=== PATIENT | male | born 1935 | race Caucasian/White ===

== ENCOUNTER → 2016-04-20 14:14 | Outpatient (CLI) | payer MEDICARE ==
[2014-06-24 10:42] VITALS: BMI 35.0
[~2016-04-20 14:14] MED LIST: ASPIRIN EC81 M1 PO; ATIVAN0.5 MG PO; CENTRUM COMPLE1 EACH PO; CHROMIUM PICO200 MC1; CHROMIUM PICO200 MC1 PO; COZAAR100 MG PO; FARXIGA10 MG PO; FLOMAX0.4 MG PO; GABAPENTIN100 MG PO; HYDROCODONE-APA1 TAB PO; INDOCIN25 MG PO; LANTUS SOL100 UNIT/1; LEXAPRO10 MG; MAGNESIUM OXID250 MG PO; METOPROLOL TART50 MG PO; OMEGA-3100 MG PO; OSTEO BI-FLEX1 EAC1 PO; PLAVIX75 MG PO; VANCOMYCIN 750750 MG IV; VITAMIN B-122500 MCG PO; ZYLOPRIM300 MG PO
[2016-04-20 15:01] LABS: BASOPHILS 0.2 % (0.0-2.0); EOSINOPHILS 0.5 % (0-7); HEMATOCRIT 38.3 % (42.0-54.0); HEMOGLOBIN 12.2 g/dL (13.5-17.5); LYMPHOCYTES 22.3 % (15-50); MCH 28.5 pg (26.0-34.0); MCHC 31.9 g/dL (31.0-37.0); MCV 89.5 fL (80.0-100.0); MONOCYTES 21.8 % (2-11); NEUTROPHILS 54.2 % (40-80); PLATELET COUNT 71 10x3/uL (130-400); RBC 4.28 10x6/uL (4.20-6.10); RDW 16.2 % (11.5-14.5); WBC 4.2 10x3/uL (4.8-10.8)
[2016-04-20 16:02] LABS: PLATELET ESTIMATE DECREASED
== END | disposition home or self-care (01) ==
LOC: D.LAB 11:00
PROVIDERS: Internal Medicine Interventional Cardiology
DX: D69.6 Thrombocytopenia, unspecified (principal)

== ENCOUNTER 2016-04-25 08:29 | Outpatient (CLI) | payer MEDICARE ==
[~2016-04-25] VITALS: Ht 177.8 cm; Wt 113.6 kg
--- NOTE | ~2016-04-25 | HEMODYNAMI ---
PATIENT:JOSE GOLDSTEIN MEDICAL RECORD: [id number] : 31 LOCATION:[facility] ADMISSION DATE: 04/25/16 Generatedon:04/26/20167:47 Patient name: JOSE GOLDSTEIN Patient #: [id number] SSN: [id number] : 1935 Date of study: 04/25/2016 Page: Of Hemodynamic Procedure Report Patient Data Patient Demographics Procedure consent was obtained First Name: JOSE Gender: Male Last Name: TRISTON : 1935 Middle Initial: D Age: 80 year(s) Patient #: [id number] Race: Unknown SSN: [id number] Additional ID: [id number] Contact details [address]: [address] [place] [address] State: [place] City: [place] Zip code: [address] Past Medical History Allergies Allergen Reaction Date Comments Reported Other allergy 06/24/2014 PCN, Sulfa, [place] Other allergy 04/25/2016 PCN, Sulfa Admission Admission Data Admission Date: 04/25/2016 Admission Time: 8:29 Arrival Date: 04/25/2016 Arrival Time: 0:00 Admit Source: Other Height (in.): 60 BSA: 2.06 (m2) Height (cm.): 152.4 BMI: 49.41 (kg/m2) Weight (lbs.): 253 Weight (kg.): 114.76 Lab Results Lab Result Date: 04/25/2016 Lab Result Time: 0:00 Biochemistry Name Units Result Min Max BUN mg/dl 26 --(----)-* 7 18 Creatinine mg/dl 1.4 --(----)*- 0.6 1.3 CBC Name Units Result Min Max Hemoglobin g/dl 12.5 *-(----)-- 13.5 17.5 Procedure Procedure Types Cath Procedure Diagnostic Procedure LHC LHC w/Coronaries Miscellaneous Procedures Moderate Sedation up to 15 minutes Procedure Description Procedure Date Procedure Date: 04/25/2016 Procedure Start Time: 10:12 Procedure End Time: 10:28 Procedure Staff Name Function Sourav Truongley RT English And Reading Instructor Hardy Wells MD Performing Physician Ankita Garvin RN Nurse Catarino Conklin RT Scrub Lashon Montero RT Monitor Kenyetta Clark RT Monitor Procedure Data Cath Procedure Fluoroscopy Diagnostic fluoroscopy Total fluoroscopy Time: 5.9 time: 5.9 min min Diagnostic fluoroscopy Total fluoroscopy dose: 371 dose: 371 mGy mGy Contrast Material Contrast Material Type Amount (ml) Isovue 300 80 Entry Location Entry Primary Successful Side Size Upsize Upsize Entry Closure Denson ccessful Closure Location (Fr) 1 (Fr) 2 (Fr) Remarks Device Remarks Radial Right 6 Fr Mechanical artery Short Compression Estimated blood loss: 10 ml Diagnostic catheters Device Type Used For End Catheter Placement Terumo 5Fr Timo 110cm Procedure catheter Cordis Infinity 5Fr Procedure Pigtail catheter Procedure Complications No complications Procedure Medications Medication Administration Route Dosage Oxygen NRB 2 l/min Heparin Flush Bag added to field 2 bags (1000units/500ml NS) Lidocaine 2% added to field 20 Radial Cocktail added to field 1 syringe (Verapomil 2mg/Nitro 400mcg/Heparin 1500units) Versed I.V. 1 mg Fentanyl I.V. 50 mcg Versed I.V. 1 mg Fentanyl I.V. 50 mcg Fentanyl I.V. 50 mcg Versed I.V. 0.5 mg Radial Cocktail I.A. 1 syringe (Verapomil 2mg/Nitro 400mcg/Heparin 1500units) Versed I.V. 0.5 mg Hemodynamics Rest BSA: 2.06 (m2) HGB: 12.5 (g/dl) O2 Consumption: Estimated: 225.52 (ml/min) O2 Co nsumption indexed: Estimated:109.48 (ml/min/m) Heart Rate: 58 (bpm) Pressure Samples Time Site Value (mmHg) Purpose Heart Use Rate(bpm) 10:20 LV 158/46,40 Snapshot 69 Snapshots Pre Cath Intra NCS Post Cath Vital Signs Time Heart Resp SPO2 NIBP (mmHg) Rhythm Pain Sedation Rate (ipm) (%) Status Level (bpm) 9:56:24 55 20 97 162/81(142) NSR 0 (11) 10(A) , No pain 10:00:52 58 25 96 158/87(140) NSR 0 (11) 10(A) , No pain 10:05:18 63 23 95 150/83(133) NSR 0 (11) 10(A) , No pain 10:09:42 63 16 95 152/83(128) NSR 0 (11) 10(A) , No pain 10:14:05 63 16 96 158/94(128) NSR 0 (11) 10(A) , No pain 10:18:16 70 16 95 140/93(124) NSR 0 (11) 9(A) , No pain 10:22:37 74 16 95 134/86(116) NSR 0 (11) 9(A) , No pain 10:26:51 66 16 94 142/86(103) NSR 0 (11) 9(A) , No pain Medications Time Medication Route Dose Verified Delivered Reason Notes Effectiveness by by 9:59:46 Oxygen NRB 2 l/min Hardy Ankita Per Russell Garvin RN physician 9:59:53 Heparin Flush added 2 bags Hardy Dash used for Bag to Russell Wells MD procedure (1000units/500ml field NS) 10:00:00 Lidocaine 2% added 20ml Hardy Hardy used for to vial Russell Wells MD procedure field 10:00:08 Radial Cocktail added 1 Hardy Hardy used for (Verapomil to syringe Russell Wells MD procedure 2mg/Nitro field 400mcg/Hepari 10:07:24 Versed I.V. 1 mg Hardy Ankita for sedation Russell Garvin RN 10:07:31 Fentanyl I.V. 50 mcg Hardy Ankita for sedation Russell Garvin RN 10:09:53 Versed I.V. 1 mg Hardy Ankita for sedation Russell Garvin RN 10:09:55 Fentanyl I.V. 50 mcg Hardy Ankita for sedation Russell Garvin RN 10:11:48 Fentanyl I.V. 50 mcg Hardy Ankita for sedation Russell Garvin RN 10:11:52 Versed I.V. 0.5 mg Hardy Ankita for sedation Russell Garvin RN 10:13:24 Radial Cocktail I.A. 1 Hardyroseline Lopezrey for (Verapomil syringe Tauth MD Tauth MD vasodilation 2mg/Nitro 400mcg/Hepari 10:14:01 Versed I.V. 0.5 mg Hardy Ankita for sedation Russell Garvin recreation specialist Log Time Note 9:46:42 Patient Height : 152.4 inches 9:46:48 Admit Source: Other 9:46:48 Patient Weight : 114.76 lbs 9:46:51 Arrival Date: 04/25/2016 12:00:00 AM 9:47:56 Lab Result : Hemoglobin 12.5 g/dl 9:47:56 Lab Result : Creatinine 1.4 mg/dl 9:47:56 Lab Result : BUN 26 mg/dl 9:48:05 Diagnostic Cath Status : Elective 9:48:48 Sourav Ng RT(R) sent for patient. Start room use. 9:48:50 Time tracking: Regular hours 9:48:55 Plan of Care:Hemodynamics will remain stable., Cardiac rhythm will remain stable., Comfort level will be maintained., Respiratory function will remain adequate., Patient/ family verbilizes understanding of procedure., Procedure tolerated without complication., Recovers from procedure without complications.. 9:49:01 Patient received from Outpatients to [facility] 3 Alert and oriented. Tansferred to table in Supine position. 9:49:03 Warm blankets applied, and otoniel hugger turned on for patient comfort. 9:49:04 Correct patient and procedure confirmed by team. 9:49:07 Signed procedure consent form obtained from patient. 9:49:23 H&P Date Dictated: 04/04/2016 Within 30 days and on chart., H&P Addendum completed by physician on day of procedure. (MUST COMPLETE FOR ALL OUTPATIENTS). 9:49:25 Pre-procedure instructions explained to patient. 9:49:26 Family in waiting room. 9:49:29 Patient NPO since Midnight. 9:49:47 Patient allergic to Other allergyPCN, Sulfa 9:49:50 Is the patient allergic to Iodine/contrast media? No. 9:49:52 Was the patient premedicated? No 9:49:53 Is patient on blood thinner?No 9:49:56 Patient diabetic? Yes. 9:49:58 If diabetic: On Metformin? No 9:50:02 Snore? Yes 9:50:04 Sleep apnea? No 9:50:05 Deviated septum? No 9:50:06 Opens mouth fully? Yes 9:50:07 Sticks out tongue? Yes 9:50:14 Patient pain scale 0/10 ?. 9:50:22 IV patent on arrival in left forearm with 0.9% NaCl at [facility]. 9:50:29 Lab results completed and on chart. 9:50:33 Right Radial & Right Groin area was prepped with chlora-prep and draped in sterile fashion 9:50:34 Sharps counted by scrub and verified by R.N. 9:50:34 Alarms reviewed by R. N. 9:50:36 Physician paged 9:55:04 Vital chart was started 9:56:29 ECG and BP/O2 sat monitors applied to patient. 9:56:31 Baseline sample Acquired. 9:56:38 Rhythm: sinus rhythm 9:56:40 Full Disclosure recording started 9:56:57 Baseline sample Acquired. 9:59:46 Oxygen 2 l/min NRB was given by Ankita Garvin RN; Per physician; 9:59:53 Heparin Flush Bag (1000units/500ml NS) 2 bags added to field was given by Hardy Wells MD; used for procedure; 10:00:00 Lidocaine 2% 20ml vial added to field was given by Hardy Wells MD; used for procedure; 10:00:08 Radial Cocktail (Verapomil 2mg/Nitro 400mcg/Heparin 1500units) 1 syringe added to field was given by Hardy Wells MD; used for procedure; 10:06:52 --------ALL STOP TIME OUT------ 10:06:52 Physician arrived 10:06:53 Final Timeout: patient, procedure, and site verified with staff and physician. All members of the team are in agreement. 10:06:55 Right Radial & Right Groin site verified by team. 10:06:58 Physical assessment completed. ASA score P 2 - A patient with mild systemic disease as per Hardy Wells MD. 10:07:01 Sedation plan: IV Moderate Sedation Versed, Fentanyl 10:07:21 Use device set Radial Dx 10:07:22 Acist Syringe opened to sterile field. 10:07:23 Medline Cath Pack opened to sterile field. 10:07:24 Terumo 6Fr Slender Glidesheath opened to sterile field. 10:07:24 Bag Decanter opened to sterile field. 10:07:24 Versed 1 mg I.V. was given by Ankita Garvin RN; for sedation; 10:07:25 St Anand 260cm J .035 wire opened to sterile field. 10:07:26 Acist Manifold opened to sterile field. 10:07: Acist Hand Control opened to sterile field. 10:07:28 Tegaderm 4 x 4 opened to sterile field. 10:07:31 Fentanyl 50 mcg I.V. was given by Ankita Garvin RN; for sedation; 10::53 Versed 1 mg I.V. was given by Ankita Garvin RN; for sedation; 10::55 Fentanyl 50 mcg I.V. was given by Ankita Garvin RN; for sedation; 10:11:48 Fentanyl 50 mcg I.V. was given by Ankita Garvin RN; for sedation; 10:11:52 Versed 0.5 mg I.V. was given by Ankita Garvin RN; for sedation; 10:12:47 Procedure started. 10:12:52 Local anesthetic to right radial artery with Lidocaine 2% by Hardy Wells MD.INITIAL ACCESS ONLY 10:13:24 Radial Cocktail (Verapomil 2mg/Nitro 400mcg/Heparin 1500units) 1 syringe I.A. was given by Hardy Wells MD; for vasodilation; 10:13:27 A 6 Fr Short sheath was inserted into the Right Radial artery 10:13:33 Zero performed for pressure channel P1 10:13:52 J wire advanced. 10:14:01 Versed 0.5 mg I.V. was given by Ankita Garvin RN; for sedation; 10:14:09 A Terumo 5Fr Timo 110cm catheter was advanced over the wire and used for Procedure. 10:18:42 Catheter removed. unable to cannulate any of the vessels. 10:20:20 A Cordis Infinity 5Fr Pigtail catheter was advanced over the wire and used for Procedure. 10:21:01 EF : 55 % 10:21:07 LV gram done using GREENFIELD 10:21:19 Catheter removed. 10:21:29 Medtronic Launcher 6Fr EBU 3.5 guide catheter opened to sterile field. 10:22:10 EBU 3.5 was advanced for procedure 10:22:14 RCA angiography performed. 10:22:22 LCA angiography performed. 10:23:44 Catheter removed. 10:23:57 Terumo TR Band Large opened to sterile field. 10:24:09 Sheath removed intact; hemostasis achieved with Mechanical Compression to the Right Radial artery. 10:24:12 Procedure ended.(Physican Out) 10:24:31 Fluoroscopy time 05.90 minutes. 10:24:38 Fluoroscopy dose: 371 mGy 10:24:38 Flurop Dose total: 371 10:24:55 Contrast amount:Isovue 300 80ml. 10:25:17 TR band inflated with 9cc of air. 10:25:20 Insertion/operative site no bleeding no hematoma. 10:25:39 Post right radial artery:stable 10:25:48 Post-procedure physical assessment completed. ASA score P 2 - A patient with mild systemic disease as per Hardy Wells MD. 10:25:57 Post procedure rhythm: unchanged. 10:26:00 Estimated blood loss: 10 ml 10:26:03 Post procedure instruction explained to patient.Patient verbalizes understanding. 10:26:06 Patient needs reinforcement of post procedure teaching. 10:26:19 Procedure type changed to Cath procedure, Diagnostic procedure, LHC, LHC w/Coronaries, Miscellaneous Procedures, Moderate Sedation up to 15 minutes 10:26:21 Procedure and supply charges have been captured, reviewed, submitted and are correct. 10:28:07 Procedure Complication : No complications 10:28:09 Vital chart was stopped 10:28:11 See physician's report for complete and final results. 10:28:16 Report given to Outpatients. 10:28:18 Patient transfered to Outpatients with Stretcher. 10:28:20 Full Disclosure recording stopped 10:28:20 Procedure ended. 10:28:27 End room use (Document Last) Device Usage Item Name Manufacture Quantity Catalog Hospital Part Current Minimal Lot# / Number Charge Number Stock Stock Serial# Code Acist Acist 1 50422 569199 620059 275238 20 [employer] Medline Cardinal 1 [id number] 253036 40481 134646 5 Cath Pack Health Bag Microtek 1 2001S [id number] 33662 364788 5 Sift [employer] Inc. Terumo 6Fr Terumo 1 [id number] 410212 907973 646243 [address] An[address] St Anand 1 325718 819124 469797 785883 30 260cm J .035 wire Acist Hand Acist 1 05923 686580 758907 495644 5 Control Medical Systems Inc Acist Acist 1 74624 415503 370647 729581 5 Manifold Medical Systems Inc Tegaderm 4 3M 1 1626W 828007 018873 756865 5 x 4 Terumo 5Fr Terumo 1 40-5023 830570 957835 024829 5 Timo 110cm catheter Medtronic Medtronic 1 [id number] 587677 056916 848585 1 Launcher 5Fr EBU 3.5 guide catheter Cordis Cardinal 1 [id number] 749317 495666 905618 5 Infinity Health 5Fr Pigtail catheter Medtronic Medtronic 1 [id number] 902762 34630 668880 3 Launcher 6Fr EBU 3.5 guide catheter Medtronic Medtronic 1 [id number] 296529 242360 778500 1 Launcher 5Fr AR 2.0 guide catheter Terumo TR Terumo 1 [id number] 818248 649087 40 Band Large Signature Audit [place] Stage Time Signature Unsigned Intra-Procedure 04/25/2016 Lashon Kumari Counts 10:29:34 AM RT(R) RT(R) 04/26/2016 7:46:22 AM Intra-Procedure 04/26/2016 Kenyetta 7:47:48 AM Counts RT(R) Signatures Monitor : Lashon Montero Signature : RT Date : Time : Monitor : Kenyetta Signature : Counts RT Date : Time : [place] [id number] [facility] [place] [address]
[~2016-04-25 08:29] MED LIST changes: -MAGNESIUM OXID250 MG PO
[2016-04-25] MEDS ORDERED: MAGNESIUM OXID250 MG PO (08:54)
[2016-04-25 09:01] VITALS: BP 163/80; Ht 177.8 cm; Wt 113.6 kg
[2016-04-25 09:03] LABS: BASOPHILS 0.6 % (0.0-2.0); EOSINOPHILS 0.6 % (0-7); HEMATOCRIT 39.2 % (42.0-54.0); HEMOGLOBIN 12.5 g/dL (13.5-17.5); IMMATURE GRANULOCYTES 0.8 % (0-5); MCH 28.5 pg (26.0-34.0); MCHC 31.9 g/dL (31.0-37.0); MCV 89.3 fL (80.0-100.0); MEAN PLATELET VOLUME 10.2 fL (7.4-10.4); MONOCYTES 20.5 % (2-11); NEUTROPHILS 45.5 % (40-80); RBC 4.39 10x6/uL (4.20-6.10); WBC 3.6 10x3/uL (4.8-10.8)
[2016-04-25 09:14] LABS: ANION GAP 12.9 mmol/L (8-16); CALCIUM 9.6 mg/dL (8.5-10.1); CARBON DIOXIDE 25.3 mmol/L (21.0-32.0); CREATININE - SERUM 1.4 mg/dL (0.6-1.3); POTASSIUM - SERUM 4.2 mmol/L (3.5-5.1)
[2016-04-25 09:15] LABS: PLATELET COUNT 56 10x3/uL (130-400)
--- NOTE | 2016-04-25 11:29 | NUR ---
1045 RECEIVED PT FROM AVIATION MECHANIC. PT IS DROWSY. RR EVEN AND UNLABORED ON 2 LPM O2 VIA NC. TR BAND CDI TO RIGHT WRIST, NO BLEEDING OR HEMATOMA NOTED. FINGERS WARM TO TOUCH, CAP REFILL IS BRISK. PT DENIES ANY C/O. INSTRUCTED PT TO LIMIT USE OF RIGHT WRIST AND PT VERBALIZES UNDERSTANDING. CALL LIGHT IS IN REACH, PT INSTRUCTED TO CALL FOR NEEDS. NO FAMILY AT BEDSIDE. 1130 PT ALERT, DENIES C/O. NO BLEEDING OR HEMATOMA AT TR BAND SITE SANDWICH TRAY SERVED.
--- NOTE | 2016-04-25 12:24 | NUR ---
PIV REMOVED FROM LEFT HAND WITH CATHETER INTACT, BANDAID APPLIED. UP TO BEDSIDE TO DRESS. R WRIST TR BAND REMAINS C/D/I WITH NO HEMATOMA OR BLEEDING.
--- NOTE | 2016-04-25 12:42 | NUR ---
1230 TR BAND HAS BEEN REMOVED ND BANDAID APPLIED, NO BLEEDING OR HEMATOMA NOTED. PT DENIES ANY C/O PAIN. DC INSTRUCTIONS REVIEWED AND PT VERBALIZES UNDERSTANDING. PT ESCORTED TO PRIVATE AUTO VIA WC BY STAFF WITH FRIEND DRIVING HIM HOME.
--- NOTE | 2016-05-05 08:46 | OP ---
PATIENT NAME: JOSE GOLDSTEIN MEDICAL RECORD: [id number] :31 LOCATION:D.CAT ADMISSION DATE: SURGEON: KEISHA MEJÍA MD DATE OF OPERATION: 04/25/2016 PROCEDURES: 1. Left heart catheterization. 2. Selective coronary angiography. 3. Left ventriculogram. INDICATION: Angina and coronary artery disease. PROCEDURE IN DETAIL: After informed consent was obtained and after detailed explanation of risks, benefits as well as alternative therapies, the patient elected to proceed with angiogram and heart catheterization. The right radial area was prepped and draped in normal sterile fashion. The right radial artery was cannulated via modified Seldinger technique with placement of 5-Lithuanian sheath. All catheters exchanged through this sheath. FINDINGS: The left ventriculogram was performed in the standard 30-degree GREENFIELD view, reveals good cardiac wall motion throughout all segments. Overall ejection fraction estimated at 60%. SELECTIVE CORONARY ANGIOGRAPHY: 1. Left main showed no significant angiographic disease. 2. Left anterior descending has previously placed stents, these are widely patent with no significant restenosis. No disease elsewise throughout the LAD or its branches. 3. Left circumflex shows moderate irregularities, but no flow-limiting stenosis. 4. Right coronary has moderate irregularities, but no flow-limiting stenosis. OVERALL IMPRESSION: Wide patency of the previously placed stents. No disease elsewise. Continue medical management of the coronary artery disease and cardiac risk factors. TRANSINT:[id number] Voice Confirmation ID: [id number] DOCUMENT ID: [id number] KEISHA MEJÍA MD at 0846 CC: [id number] DICTATION DATE: 04/25/16 1029 SUPERVISOR ASSEMBLY AND PACKING: 04/25/161957 [facility] CLI 04/25/16 [facility] [address] [place] [id number]
== END 2016-04-25 12:30 | disposition home or self-care (01) ==
LOC: D.CATH 08:29
PROVIDERS: Internal Medicine Interventional Cardiology
DX: I25.119 Atherosclerotic heart disease of native coronary artery with unspecified angina pectoris (principal); Z95.5 Presence of coronary angioplasty implant and graft

== ENCOUNTER 2017-03-08 13:43 | Emergency (ER) | payer MEDICARE ==
[2016-04-25 09:01] VITALS: BMI 35.9
[~2017-03-08 13:43] MED LIST changes: +MAGNESIUM OXID250 MG PO
[2017-03-08 16:10] LABS: HEMOGLOBIN 12.2 g/dL (13.5-17.5); MCHC 32.1 g/dL (31.0-37.0); MCV 87.2 fL (80.0-100.0); MEAN PLATELET VOLUME 9.8 fL (7.4-10.4); PLATELET COUNT 57 10x3/uL (130-400); RBC 4.36 10x6/uL (4.20-6.10); WBC 3.6 10x3/uL (4.8-10.8)
[2017-03-08 16:28] LABS: ALBUMIN 3.4 g/dL (3.4-5.0); ANION GAP 12.1 mmol/L (8-16); BILIRUBIN - TOTAL 0.66 mg/dL (0.2-1.3); CALCIUM 9.8 mg/dL (8.5-10.1); CARBON DIOXIDE 28.2 mmol/L (21.0-32.0); CREATININE - SERUM 1.5 mg/dL (0.6-1.3); POTASSIUM - SERUM 4.3 mmol/L (3.5-5.1); PROTEIN - SERUM 7.2 g/dL (6.4-8.2)
[2017-03-08 16:46] LABS: EOSINOPHILS 2 % (0-7); LYMPHOCYTES 40 % (15-50); MONOCYTES 9 % (2-11); NEUTROPHILS 48 % (40-80); PLATELET ESTIMATE DECREASED
[2017-04-17] MEDS ORDERED: ZOFRAN ODT4 MG/UDTAB PO (23:20)
[2017-04-17] MEDS ORDERED: PROAIR HFA8.5 GM INH (23:21)
[2017-04-17] MEDS ORDERED: IPRAT-ALBUT 0.5-3 ML UPD (23:21)
== END 2017-03-08 17:30 | disposition home or self-care (01) ==
LOC: D.ER 13:43
PROVIDERS: Physician Assistant
DX: J90 Pleural effusion, not elsewhere classified (principal); J18.9 Pneumonia, unspecified organism; R06.00 Dyspnea, unspecified; D69.6 Thrombocytopenia, unspecified

== ENCOUNTER 2017-03-09 15:24 | Inpatient (IN) | payer MEDICARE ==
[~2017-03-09] VITALS: Ht 177.8 cm; Wt 107.6 kg
--- NOTE | ~2017-03-09 | EC ---
PATIENT:JOSE GOLDSTEIN DATE OF SERVICE: 03/09/17 SEX: M MEDICAL RECORD: [id number] DATE OF : 31 LOCATION:D. D.213 AGE OF PATIENT: 81 ADMISSION DATE: 03/09/17 REFERRING PHYSICIAN: INTERPRETING PHYSICIAN: ROBERT CUTLER MD ECHOCARDIOGRAM REPORT ECHO CHARGES 4 ECHO COMPLETE CLINICAL DIAGNOSIS: SOB ECHOCARDIOGRAPHIC MEASUREMENTS (adult normal given) AC root (d.<3.7cm) 3.9 cm LV Septum d (<1.2 cm> 1.8 cm Valve Excursion 2.3 cm LV Septum (systole) 2.8 cm Left Atria (s.<4.0cm> 4.2 cm LVPW d(<1.2cm) 1.3 cm RV (d.<2.3cm) 2.5 cm LVPW (sytole) 1.9 cm LV diastole(<5.6CM) 6.4 cm MV E-F(>70mm/sec) cm LV systole 3.6 cm LVOT Diameter 2.0 cm MV exc.(>10mm) cm Est.ejection fraction (50-75%) % Pericardial Effusion N DOPPLER: LVIT cm/sec A 78.0 cm/sec E 130 cm/sec LA cm/sec RVSP 52.0 mmHg LVOT 135 cm/sec AOP1/2T m/s Asc. Ao 229 cm/sec RVOT 93.0 cm/sec RA cm/sec PA 116 cm/sec AV Gradient Peak 21.0 mmHg AV Mean 9.6 mmHg AV Area 1.8 cm MV Gradient Peak 8.2 mmHg MV Mean 2.8 mmHg MV Area cm COMMENTS: Brick Cleaner: Anastasiia SPANN [place] Facilities And Grounds Director: 4 Dr. Cutler TAPE# PACS DATE OF SERVICE: 03/11/2017 PROCEDURE: Transthoracic echocardiogram. FINDINGS: 1. The left ventricle shows moderate concentric left ventricular hypertrophy, ejection fraction 60%. Inflow characteristics are normal. 2. The left atrium is mildly dilated. 3. The aortic valve has mild aortic sclerosis. Peak pressure gradient is 21. The aortic root is mildly dilated and there is trace aortic insufficiency. ECHOCARDIOGRAM REPORT [id number] JOSE GOLDSTEIN 4. The mitral valve has normal valve structure. There is no significant mitral regurgitation. 5. Tricuspid valve has trace tricuspid regurgitation. 6. The pericardium is normal. 7. The right atrium is mildly dilated. 8. The right ventricle shows right ventricular hypertrophy with normal size. 9. The right ventricular systolic pressure is estimated at 45 to 50 mmHg, mildly elevated. CONCLUSIONS: The patient has evidence of hypertensive heart disease and aortic sclerosis with mild aortic stenosis and evidence of mild pulmonary hypertension. TRANSINT:[id number] Voice Confirmation ID: [id number] DOCUMENT ID: [id number] 03/21/2017 Edited to correct date of service, dm. ROBERT CUTLER MD at 1038 CC: [id number] DICTATION DATE: 03/15/17 0828 POLICE COMMANDING OFFICER: 03/15/17 1101 DIS IN 03/12/17 [place] [id number] [place] [address]
[2017-03-09 17:44] VITALS: BP 168/73; BMI 35.2
[2017-03-09 18:54] LABS: HEMOGLOBIN 12.6 g/dL (13.5-17.5); MCHC 32.3 g/dL (31.0-37.0); MCV 86.7 fL (80.0-100.0); MEAN PLATELET VOLUME 10.2 fL (7.4-10.4); RDW 16.1 % (11.5-14.5)
[2017-03-09 19:00] LABS: PLATELET COUNT 71 10x3/uL (130-400); WBC 6.5 10x3/uL (4.8-10.8)
[2017-03-09 19:08] LABS: ALBUMIN 3.9 g/dL (3.4-5.0); ANION GAP 17.3 mmol/L (8-16); BILIRUBIN - TOTAL 0.54 mg/dL (0.2-1.3); CALCIUM 10.1 mg/dL (8.5-10.1); CARBON DIOXIDE 25.9 mmol/L (21.0-32.0); CREATININE - SERUM 1.8 mg/dL (0.6-1.3); MAGNESIUM - SERUM 1.9 mg/dL (1.8-2.4); POTASSIUM - SERUM 4.2 mmol/L (3.5-5.1); PROTEIN - SERUM 7.3 g/dL (6.4-8.2)
[2017-03-09 19:28] LABS: LYMPHOCYTES 26 % (15-50); MONOCYTES 1 % (2-11); NEUTROPHILS 73 % (40-80); PLATELET ESTIMATE DECREASED
[2017-03-09 20:45] VITALS: BP 177/82
[2017-03-10 00:30] VITALS: BP 177/82
[2017-03-10 08:00] VITALS: BP 163/68
[2017-03-10 10:05] LABS: APPEARANCE CLEAR (CLEAR); BILIRUBIN NEGATIVE (NEGATIVE); COLOR YELLOW (YELLOW); GLUCOSE NEGATIVE (NEGATIVE); KETONE NEGATIVE (NEGATIVE); NITRITE NEGATIVE (NEGATIVE); PROTEIN 2+ mg/dL (NEGATIVE); UROBILINOGEN NORMAL (NORMAL)
[2017-03-10 10:06] LABS: BACTERIA FEW /hpf (NONE SEEN); EPITHELIAL CELLS 0-5 /hpf (0-5); HYALINE CAST 0-5 /lpf (NONE SEEN); MUCUS <1+ /lpf (NONE SEEN); RED CELLS - URINE 0-5 /hpf (0-5); WHITE CELLS - URINE 0-5 /hpf (0-5)
[2017-03-10 12:00] VITALS: BP 160/78
[2017-03-10 12:19] VITALS: Ht 177.8 cm; Wt 107.6 kg
[2017-03-11] VITALS: BP 186/67
[2017-03-11 06:20] VITALS: BP 128/73
[2017-03-11 07:19] LABS: BASOPHILS 0.3 % (0-2); EOSINOPHILS 0.6 % (0-7); HEMATOCRIT 36.3 % (42.0-54.0); HEMOGLOBIN 11.6 g/dL (13.5-17.5); IMMATURE GRANULOCYTES 1.7 % (0-5); LYMPHOCYTES 22.4 % (15-50); MCH 27.8 pg (26.0-34.0); MCV 86.8 fL (80.0-100.0); MEAN PLATELET VOLUME 9.7 fL (7.4-10.4); MONOCYTES 17.7 % (2-11); NEUTROPHILS 57.3 % (40-80); RBC 4.18 10x6/uL (4.20-6.10); RDW 16.1 % (11.5-14.5)
[2017-03-11 07:21] LABS: PLATELET COUNT 54 10x3/uL (130-400); WBC 3.4 10x3/uL (4.8-10.8)
[2017-03-11 07:41] LABS: HEMOGLOBIN A1C 5.4 % (4.8-6.0)
[2017-03-11 07:42] LABS: ALBUMIN 3.5 g/dL (3.4-5.0); ANION GAP 15.2 mmol/L (8-16); BILIRUBIN - TOTAL 0.48 mg/dL (0.2-1.3); CALCIUM 9.1 mg/dL (8.5-10.1); CARBON DIOXIDE 25.8 mmol/L (21.0-32.0); CREATININE - SERUM 1.6 mg/dL (0.6-1.3); THYROID STIMULATING HORMONE 2.79 uIU/mL (0.36-3.74)
[2017-03-11 08:12] VITALS: BP 132/72
[2017-03-11 11:30] VITALS: BP 130/75
[2017-03-11 15:40] VITALS: BP 118/76
[2017-03-11 21:52] VITALS: BP 186/87
[2017-03-12 00:52] VITALS: BP 167/86
[2017-03-12 07:25] VITALS: BP 165/71
[2017-03-12 07:49] LABS: BASOPHILS 0 % (0-2); EOSINOPHILS 0.6 % (0-7); HEMATOCRIT 35.7 % (42.0-54.0); HEMOGLOBIN 11.3 g/dL (13.5-17.5); IMMATURE GRANULOCYTES 1.1 % (0-5); LYMPHOCYTES 18.8 % (15-50); MCH 27.5 pg (26.0-34.0); MCHC 31.7 g/dL (31.0-37.0); MCV 86.9 fL (80.0-100.0); MONOCYTES 16.3 % (2-11); NEUTROPHILS 63.2 % (40-80); RBC 4.11 10x6/uL (4.20-6.10); RDW 15.9 % (11.5-14.5); WBC 3.6 10x3/uL (4.8-10.8)
[2017-03-12 07:51] LABS: PLATELET COUNT 46 10x3/uL (130-400)
[2017-03-12 07:57] LABS: ANION GAP 13.4 mmol/L (8-16); CALCIUM 9.1 mg/dL (8.5-10.1); CARBON DIOXIDE 24.6 mmol/L (21.0-32.0); CREATININE - SERUM 1.4 mg/dL (0.6-1.3)
[2017-03-12 08:00] VITALS: BP 177/84
[2017-03-12 12:03] VITALS: BP 117/78
[2017-03-12] MEDS ORDERED: Dextrose 50%-Water I IV (20:30)
[2017-03-12] MEDS ORDERED: Levaquin PO (20:30)
[2017-03-12] MEDS ORDERED: WHISKEY PO (20:30)
[2017-03-14 07:21] LABS: IMMUNOGLOBULIN E 900 IU/mL (0-100)
[2017-04-17] MEDS ORDERED: ZOFRAN ODT4 MG/UDTAB PO (23:20)
[2017-04-17] MEDS ORDERED: PROAIR HFA8.5 GM INH (23:21)
[2017-04-17] MEDS ORDERED: IPRAT-ALBUT 0.5-3 ML UPD (23:21)
== END 2017-03-12 21:35 | disposition home or self-care (01) | DRG 178 ==
LOC: D.M2 15:24
PROVIDERS: Family Medicine; Internal Medicine Pulmonary Disease
DX: J15.6 Pneumonia due to other Gram-negative bacteria (principal); J44.0 Chronic obstructive pulmonary disease with (acute) lower respiratory infection; J44.1 Chronic obstructive pulmonary disease with (acute) exacerbation; J98.11 Atelectasis; J13 Pneumonia due to Streptococcus pneumoniae; E11.40 Type 2 diabetes mellitus with diabetic neuropathy, unspecified; E11.22 Type 2 diabetes mellitus with diabetic chronic kidney disease; I12.9 Hypertensive chronic kidney disease with stage 1 through stage 4 chronic kidney disease, or unspecified chronic kidney disease; N18.9 Chronic kidney disease, unspecified; Z79.4 Long term (current) use of insulin; N40.0 Benign prostatic hyperplasia without lower urinary tract symptoms; M10.9 Gout, unspecified; D69.6 Thrombocytopenia, unspecified; I25.10 Atherosclerotic heart disease of native coronary artery without angina pectoris; F10.10 Alcohol abuse, uncomplicated; Z95.5 Presence of coronary angioplasty implant and graft; Z87.891 Personal history of nicotine dependence

== ENCOUNTER 2017-04-16 14:28 | Inpatient (IN) | payer MEDICARE | END 2017-04-27 00:38 | disposition PTX | DRG 477 | LOC: D.ER 14:28 → D.SDCHOLD 04-17 17:23 → D.M2 04-17 21:04 → D.ICU 04-24 14:45 | PROC: 0PB43ZX Excision of Thoracic Vertebra, Percutaneous Approach, Diagnostic (ICD-10-PCS; principal; 2017-04-19) | PROC: 0D9670Z Drainage of Stomach with Drainage Device, Via Natural or Artificial Opening (ICD-10-PCS; 2017-04-23) | DX: C79.51 Secondary malignant neoplasm of bone (principal); A41.9 Sepsis, unspecified organism; G92 Toxic encephalopathy; I50.31 Acute diastolic (congestive) heart failure; F10.239 Alcohol dependence with withdrawal, unspecified; N17.9 Acute kidney failure, unspecified; J81.1 Chronic pulmonary edema; C80.1 Malignant (primary) neoplasm, unspecified; Z66 Do not resuscitate; R13.10 Dysphagia, unspecified; R31.9 Hematuria, unspecified; D50.9 Iron deficiency anemia, unspecified; N28.1 Cyst of kidney, acquired; E86.0 Dehydration; R16.1 Splenomegaly, not elsewhere classified; J44.9 Chronic obstructive pulmonary disease, unspecified; D69.6 Thrombocytopenia, unspecified; F41.9 Anxiety disorder, unspecified; I25.10 Atherosclerotic heart disease of native coronary artery without angina pectoris; N40.0 Benign prostatic hyperplasia without lower urinary tract symptoms; E11.65 Type 2 diabetes mellitus with hyperglycemia; E11.40 Type 2 diabetes mellitus with diabetic neuropathy, unspecified; W18.30XA Fall on same level, unspecified, initial encounter; I11.0 Hypertensive heart disease with heart failure; I48.91 Unspecified atrial fibrillation ==